=== PATIENT | male | born 1980 | race Caucasian/White ===

== ENCOUNTER 2021-04-10 08:21 | Emergency (ER) | payer OTHER, SELFPAY ==
--- NOTE | 2021-04-10 08:29 | ED.URI ---
HPI - URI/Sore Throat General Chief Complaint: Upper Respiratory Infection Stated Complaint: aches cough sore throat Time Seen by Provider: 04/10/21 08:29 Source: patient and RN notes reviewed History of Present Illness HPI Narrative: Patient is a 40-year-old male who presents the urgent care with complaints of body aches, cough, sore throat, sweating and chills. Patient states that it started yesterday with the body aches and he woke up this morning covered in sweat. Patient has not taken anything [id number] for his symptoms. States that he has had no recent Covid exposure. Patient has not had the Covid vaccine. Denies of any shortness of breath or chest pain. Patient states that he just needs a Covid test to go back to work . No other acute complaints. No acute distress noted. Patient aware of the plan of care. Some parts of this dictation were generated by voice recognition software and may contain typographical and/or grammatical inaccuracies. Related Data Home Medications Medication Instructions Recorded Confirmed No Home Medications 04/10/21 04/10/21 Allergies Allergy/AdvReac Type Severity Reaction Status Date / Time No Known Allergies Allergy Verified 04/10/21 08:37 Review of Systems Review of Systems: CONSTITUTIONAL: Reports of chills and sweats EYES: Denies visual changes, redness, or discharge. ENT: Denies rhinorrhea, congestion, otalgia. Reports of sore throat CARDIOVASCULAR: Denies chest pain, palpitations, or edema. RESPIRATORY: Reports of cough without dyspnea GASTROINTESTINAL: Denies abdominal pain, nausea, vomiting, or diarrhea. GENITOURINARY: Denies dysuria or hematuria. SKIN: Denies rash or itching. MUSCULOSKELETAL: Denies back pain, joint pain. Reports body aches NEUROLOGIC: Denies headache, numbness, or weakness. All other systems reviewed are negative, except as documented in HPI. PMFSH Comments At the time of my signature, I reviewed and agree with the nursing past medical, surgical, social, and family history. There is no relevant family history pertinent to the patient complaint. Exam Narrative: GENERAL: This is a well-nourished, well-developed patient, in no apparent distress. HEAD: normocephalic, atraumatic. EYES: PERRL. Sclera clear/white. Vision is grossly intact. EARS: External ears normal, auditory canals clear and without drainage, TMs normal without perforation. Hearing grossly intact. NOSE: External nose normal with no obvious nasal discharge, nares without redness, clear to yellow rhinorrhea. THROAT: Mucous membranes moist. Moderate erythema noted posterior oropharynx with bilateral mild tonsillar edema/erythema without exudate or ulceration. NECK: Neck supple CARDIOVASCULAR: Regular rate and rhythm without murmurs, gallops, or rubs. RESPIRATORY: Clear to auscultation. Breath sounds equal bilaterally. No wheezes, rales, or rhonchi. SKIN: warm, intact with no suspicious lesions or rash, good texture and turgor. NEURO: awake, alert, and oriented to person, place and time. There were no obvious focal neurologic abnormalities. EXTREMITIES: No clubbing, cyanosis, or edema. Course Course Level of Care: Express Care Visit Vital Signs Vital signs: Vital Signs Temperature 99.7 F H 04/10/21 08:30 Pulse Rate 90 04/10/21 08:30 Respiratory Rate 18 04/10/21 08:30 Blood Pressure 140/72 04/10/21 08:30 Pulse Oximetry 98 04/10/21 08:30 Temperature 99.7 F H 04/10/21 08:30 Pulse Rate 90 04/10/21 08:30 Respiratory Rate 18 04/10/21 08:30 Blood Pressure 140/72 04/10/21 08:30 Pulse Oximetry 98 04/10/21 08:30 Reviewed MDM - URI/Sore Throat MDM Narrative Medical decision making narrative: Reviewed lab results with the patient. He is aware that flu swab was negative. It is highly likely that you do have Covid however you do not meet requirements for a rapid Covid test at this time. Advised patient to stay quarantine and follow CDC guidelines regar
[2021-04-10 08:30] VITALS: BP 140/72; PULSE 90; RESP 18; TEMP 37.6; O2SAT 98
== END 2021-04-10 08:47 | disposition home or self-care (01) ==
PROVIDERS: Emergency Provider Nurse Practitioner Family
DX: Z20.822 Contact with and (suspected) exposure to COVID-19 (principal)
CPT/HCPCS: 87804; 99213; G0463

== ENCOUNTER → 2021-04-13 03:53 | Outpatient (CLI) | payer OTHER, SELFPAY ==
[2021-04-13 22:12] LABS: SARS-CoV-2 RNA PCR Positive
== END ==
PROVIDERS: Visit Provider Nurse Practitioner Family
DX: U07.1 COVID-19 (principal)
CPT/HCPCS: C9803; U0003; U0005

== ENCOUNTER 2022-02-07 09:12 | Emergency (ER) | payer OTHER, SELFPAY ==
[2022-02-07 09:20] VITALS: BP 136/75; PULSE 66; RESP 12; TEMP 36.4; O2SAT 100
--- NOTE | 2022-02-07 09:51 | ED.URI ---
HPI - URI/Sore Throat General Chief Complaint: Upper Respiratory Infection Stated Complaint: Congestion Time Seen by Provider: 02/07/22 09:43 Source: patient and RN notes reviewed Mode of arrival: ambulatory Limitations: no limitations History of Present Illness HPI Narrative: 41-year-old male presents concern for 3 day history of nasal congestion, body aches, fevers. He reports symptoms are slightly improving. He denies shortness of breath, nausea, vomiting. He would like to return to work. He reports he has been taking [id number] cold medicine. MD elicited complaint: fever Related Data Home Medications Medication Instructions Recorded Confirmed No Home Medications 04/10/21 02/07/22 Allergies Allergy/AdvReac Type Severity Reaction Status Date / Time No Known Allergies Allergy Verified 04/10/21 08:37 Review of Systems Review of Systems: CONSTITUTIONAL: Reports malaise, fever. EYES: Denies visual changes, redness, or discharge. ENT: Reports rhinorrhea, congestion. Denies sinus pain, otalgia and sore throat. CARDIOVASCULAR: Denies chest pain, palpitations, or edema. RESPIRATORY: Denies cough. Denies dyspnea. GASTROINTESTINAL: Denies abdominal pain, nausea, vomiting, diarrhea SKIN: Denies rash or itching. MUSCULOSKELETAL: Reports myalgia. NEUROLOGIC: Denies headache. All systems reviewed & are unremarkable except as noted in HPI and below PMFSH Comments At time of signature, agree with nursing past medical, surgical, social and family history. There is no relevant family history pertinent to the presenting complaint Exam Narrative: GENERAL: Well-appearing, well-nourished, and in no acute distress. HEAD: Normocephalic EYES: PERRLA, conjunctivae clear ENT: Nares clear. Mucous membranes moist. TM pearly zavala with dull light reflex bilaterally; no tragal tenderness. Oropharynx not erythematous without lesions. Tonsils not enlarged and without exudate, no drooling, no hoarseness, no trismus, uvula midline. NECK: Supple. No lymphadenopathy CHEST: Clear to auscultation, breath sounds equal. No wheezing, rhonchi, rales, or stridor. No respiratory distress, speaks in full sentences. HEART: Regular rate and rhythm. No murmur heard. SKIN: Warm, dry, no rash. NEURO: Alert and oriented x3. PSYCH: Normal mood and affect Course Course Emergency Course: Patient is aware of diagnosis, understands and agrees to treatment plan. Anticipatory guidance given. Patient agrees to follow-up as directed and is aware of reasons to seek care at the emergency department. Portions of this record may have been created with voice recognition software Level of Care: Express Care Visit Vital Signs Vital signs: Vital Signs Temperature 97.5 F L 02/07/22 09:20 Pulse Rate 66 02/07/22 09:20 Respiratory Rate 12 02/07/22 09:20 Blood Pressure 136/75 02/07/22 09:20 Pulse Oximetry 100 02/07/22 09:20 Oxygen Delivery Room Air 02/07/22 09:20 Temperature 97.5 F L 02/07/22 09:20 Pulse Rate 66 02/07/22 09:20 Respiratory Rate 12 02/07/22 09:20 Blood Pressure 136/75 02/07/22 09:20 Pulse Oximetry 100 02/07/22 09:20 Oxygen Delivery Room Air 02/07/22 09:20 Reviewed. MDM - URI/Sore Throat MDM Narrative Medical decision making narrative: Differential diagnosis considered: Díaz virus, strep pharyngitis, allergic rhinitis, upper respiratory tract infection, sinusitis, rhinosinusitis, nasopharyngitis. viral pharyngitis, otitis media, otitis externa, pneumonia, bronchitis, viral cough syndrome, viral syndrome, and influenza. Exam findings show no acute concerns or changes; patient is non-toxic appearing and is in no distress. Patient is appropriate for outpatient treatment and follow-up. Lab Data Attestation: I reviewed the patient's lab results. Labs: Influenza A Screen Negative Reference Range: Negative Influenza B Screen N
== END 2022-02-07 10:03 | disposition home or self-care (01) ==
PROVIDERS: Emergency Provider Nurse Practitioner
DX: U07.1 COVID-19 (principal)
CPT/HCPCS: 87426; 87804; 99213; C9803; G0463

== ENCOUNTER 2022-05-20 13:36 | Emergency (ER) | payer OTHER, SELFPAY ==
[2022-05-20 13:41] VITALS: BP 144/80; PULSE 76; RESP 16; TEMP 37.1; O2SAT 100
--- NOTE | 2022-05-20 14:33 | ED.URI ---
HPI - URI/Sore Throat General Chief Complaint: Upper Respiratory Infection Stated Complaint: Ear Pain/Sore Throat Source: patient, RN notes reviewed and old records reviewed Mode of arrival: ambulatory Limitations: no limitations History of Present Illness HPI Narrative: 41 year old male presents to [facility] care with complaints of his ears feeling clogged and some pain to his left ear since yesterday afternoon with drainage in back of his throat with throat feeling scratchy. Patient reports that he has not noted a fever or has he taken any OTC medications. Patient reports that he has had COVID vaccination but has not had any flu shot, denies any known ill contacts. Patient reports that he thinks he has sinus infection. MD elicited complaint: sore throat and other (ears feel clogged, sinus drainage) Treatments prior to arrival: none Related Data Allergies Allergy/AdvReac Type Severity Reaction Status Date / Time No Known Allergies Allergy Verified 04/10/21 08:37 Review of Systems Review of Systems: CONSTITUTIONAL: Denies malaise, chills, sweats, or fever. EYES: Denies visual changes, redness, or discharge. ENT: Reports rhinorrhea, congestion, sinus pain, otalgia, scratchy sore throat. CARDIOVASCULAR: Denies chest pain, palpitations, or edema. RESPIRATORY: Reports cough.? Denies dyspnea. GASTROINTESTINAL: Denies abdominal pain, nausea, vomiting, diarrhea SKIN: Denies rash or itching. MUSCULOSKELETAL: Denies myalgia. NEUROLOGIC: Denies headache. All systems reviewed & are unremarkable except as noted in HPI and below PMFSH Past Medical History Medical History (Updated 05/21/22 @ 16:30 by Tere Berrios NP) Ankle fracture, right Surgical History Surgical History (Updated 05/21/22 @ 16:30 by Tere Berrios NP) History of repair of pectoralis muscle tear Social History Social History (Updated 05/21/22 @ 16:33 by Tere Berrios NP) Smoking status: Current some day smoker Tobacco type: cigarettes Alcohol intake: current Alcohol use details: social Substance use type: does not use Living arrangements: with family Gender identity (if verbalized by the patient): Male Comments At time of signature, agree with nursing past medical, surgical, social and family history. There is no relevant family history pertinent to the presenting complaint Exam Narrative: GENERAL: Well-appearing, well-nourished, and in no acute distress. HEAD: Normocephalic EYES: PERRLA, conjunctivae clear ENT: Nares clear, turbinates edematous and erythematous, clear discharge. Mucous membranes moist. TM pearly zavala with dull light reflex bilaterally; no tragal tenderness. Oropharynx erythematous without lesions. Tonsils not enlarged and without exudate, no drooling, no hoarseness, no trismus, uvula midline. NECK: Supple. No lymphadenopathy CHEST: Clear to auscultation, breath sounds equal. No wheezing, rhonchi, rales, or stridor. No respiratory distress, speaks in full sentences.SAO2 100% on room air HEART: Regular rate and rhythm. No murmur heard. SKIN: Warm, dry, no rash. NEURO: Alert and oriented x3. PSYCH: Normal mood and affect Course Course Emergency Course: Patient is aware of diagnosis, understands and agrees to treatment plan.? Anticipatory guidance given.? Patient agrees to follow-up as directed and is aware of reasons to seek care at the emergency department. Portions of this record may have been created with voice recognition software Level of Care: Express Care Visit Vital Signs Vital signs: Vital Signs Temperature 37.1 C 05/20/22 13:41 Pulse Rate 76 05/20/22 13:41 Respiratory Rate 16 05/20/22 13:41 Blood Pressure 144/80 H 05/20/22 13:41 Pulse Oximetry 100 05/20/22 13:41 Oxygen Delivery Room Air 05/20/22 13:41 Temperature 37.1 C 05/20/22 13:41 Pulse Rate 76 05/20/22 13:41 Respiratory Rate 16 05/20/22 13:41 Blood Pressure 144/80 H 05/08
== END 2022-05-20 14:57 | disposition home or self-care (01) ==
PROVIDERS: Emergency Provider Registered Nurse; PCP Family Medicine
DX: J06.9 Acute upper respiratory infection, unspecified (principal); F17.210 Nicotine dependence, cigarettes, uncomplicated
CPT/HCPCS: 87081; 87880; 99213; G0463